=== PATIENT | male | born 1940 | race Caucasian/White ===

== ENCOUNTER → 2020-02-01 11:31 | Outpatient (CLI) | payer MEDICARE, BC, SELFPAY ==
--- NOTE | 2020-02-01 14:15 | PROSB_PTH ---
PATIENT: UMU MÁRQUEZ LOC: [facility] U#:[id number] AGE/SX: 85/M ROOM: RE02/01/[address]: Dr. Jackson Berger MD : 1940 BED: DIS: SPEC #: [id number] RECD: 02/01/20 17:31 STATUS: MELISSA LUCIE #: [id number] SANDIE: 02/01/20 14:[address]: Jackson Berger DEPT: SURGICAL PATHOLOGY RECD BY: David Conklin ENTERED: 02/02/20 11:36 SP TYPE: PROST BX OTHR DR: Dr. Guido Mckoy MD Tissues: Prostate, NOS Procedures: Surgery Specimen Level IV HEADER OPERATION: Prostate biopsy PRE-OP DIAGNOSIS: Elevated PSA TISSUE SUBMITTED: Prostate biopsy MICROSCOPIC DIAGNOSIS Prostate, core biopsy: Prostatic adenocarcinoma. Sandip grade: 4+5=9 Number of cores involved: 2/2 Proportion of tissue involved: >95% Perineural invasion: Present, frequent. Greatest tumor length: 1.1 cm ABRAM:kristie 02/03/20 MICROSCOPIC DESCRIPTION Slides are reviewed. GROSS DESCRIPTION Received in fixative is one container labeled with the patient's name and designated prostate. The specimen consists of two elongated fragments of light wyatt-white soft tissue measuring 1.4 and 1.8 cm in length and 0.1 cm in diameter. The specimen is totally submitted in one cassette. / ABRAM:kristie 02/02/20 TC:0 CPT: 63943
== END ==
PROVIDERS: PCP Family Medicine; Referring Provider Urology; Visit Provider Urology
DX: C61 Malignant neoplasm of prostate (principal)
CPT/HCPCS: 88305

== ENCOUNTER 2020-08-03 06:43 | Day surgery (SDC) | payer MEDICARE, BC, SELFPAY ==
--- NOTE | 2020-08-01 09:29 | EKG12_ITS ---
Test Reason : PREOP Blood Pressure : / mmHG Vent. Rate : 072 BPM Atrial Rate : 072 BPM P-R Int : 156 ms QRS Dur : 082 ms QT Int : 400 ms P-R-T Axes : 024 -23 037 degrees QTc Int : 438 ms Normal sinus rhythm Normal ECG Confirmed by CLAUDIA CARPENTER, LAURY ([id number]), slot editor FREDDIE MARSHALL ([id number]) on 08/02/2020 10:55:31 AM Referred By: Jackson Berger Confirmed By:LAURY TAYLOR MD
[2020-08-01 10:12] LABS: Absolute Lymphocyte Count 1.34 X10^3/uL (0.83-4.51); Absolute Neutrophil Count 3.5 X10^3/uL (2.0-7.7); Basophil# 0.04 X10^3/uL; Basophil% 0.7 % (0-1); Eosinophil# 0.11 X10^3/uL; Hematocrit 44.3 % (40-54); Hemoglobin 14.6 g/dL (13.0-16.5); Lymphocyte # 1.34 X10^3/ul (4.0); Lymphocyte % 24.2 % (19-41); Mean Corpuscular Hgb 30.8 pg (27.0-32.0); Mean Corpuscular Volume 93.5 fL (80-94); Mean Platelet Vol. 9.3 fl (6.2-12.0); Monocyte# 0.56 X10^3/uL; Monocyte% 10.1 % (0-10); NRBC Flagged by Analyzer 0 % (0-5); Neutrophil # 3.47 X10^3/uL (2.7-7.7); Neutrophil % 62.8 % (47-70); Platelet Count 265 K/mm3 (150-450); RBC Distribution Width CV 12.7 % (11.6-14.6); RBC Distribution Width SD 43.3 fl (35.1-43.9); Red Blood Count 4.74 M/mm3 (4.6-6.2); White Blood Count 5.5 K/mm3 (4.4-11.0)
[2020-08-01 10:36] LABS: Anion Gap 5 (5-15); BUN 10 mg/dL (7-18); BUN/Creat Ratio 12.2 RATIO (10-20); Calcium,Total 9.3 mg/dL (8.5-10.1); Chloride 102 mmol/L (98-107); Creatinine, Serum 0.82 mg/dL (0.70-1.30); EST Glomerular Filtration Rate 96 mL/min (>60); Est Glom Filt Rate - Afr Amer 116 mL/min (>60); Glucose 94 mg/dL (74-106); Potassium 3.7 mmol/L (3.5-5.1); Sodium Level 137 mmol/L (136-145)
[2020-08-03] VITALS (11 sets, daily range): BP systolic 126–157; BP diastolic 78–93; PULSE 60–88; RESP 16–18; TEMP 36.1–37.2; O2SAT 92–98; BMI 27.3
--- NOTE | 2020-08-03 | IMM_PTH ---
PATIENT: UMU MÁRQUEZ [place] [facility] [id number] AGE/SX: 80/M ROOM: RE08/03/[address]: Dr. Jackson Berger MD : 1940 BED: DIS: 08/04/2020 SPEC #: [id number] RECD: 08/04/20 12:37 STATUS: MELISSA REQ #: [id number] SANDIE: 08/03/20 00:[address]: Jackson Berger DEPT: IMMUNOHISTOCHEMISTRY RECD BY: Kassidy Mason ENTERED: 08/04/20 12:38 SP TYPE: IMMUNO OTHR DR: Dr. Guido Mckoy MD Tissues: Prostate, NOS Procedures: P40 (add) PSAP (add) 34BE12 (initial) S-100 (add) PHYSICIAN & INSTITUTION [place] [phone] SPECIMEN INFORMATION: Tissue Source: Prostate tissue Clinical Info: BPH with outlet obstruction Specimen Number: [id number] #2 CPT code: 26487, 53303 x3 METHODOLOGY: Deparaffinized sections of prefer/formalin-fixed tissue or PAP/DQ stained slides are incubated with monoclonal/polyclonal antibodies/oligonucleotide probes. Localization is made via biotin free immunoperoxidase method. Appropriate controls are performed and reacted as expected. Results on target cell population are indicated in the following table: RESULTS: ANTIBODY / CLONE RESULT Block 2 PSAP (PASE/4LJ) positive P40 (BC28) negative 34BE12 (34BE12) negative S-100 (4C4.9) positive These tests were developed and their performance characteristics determined by [facility]. They may not have been cleared or approved by the U.[place]. Food and Drug Administration. The FDA has determined that such clearance or approval is not necessary. The above immunohistochemical/dualISH markers are ordered and reviewed by the Pathologist. INTERPRETATION: Prostate tissue, TUR: Adenocarcinoma with focal perineural invasion. AM:kristie 08/05/2020
[2020-08-03] MEDS: Lactated Ringers 1,000 ML 100 ML IV (07:29)
[2020-08-03] MEDS: Cefazolin 2 GM in 0.9% Normal Saline 100 ML IV (08:36)
--- NOTE | 2020-08-03 08:42 | PCM.HP.STD ---
Problem List (1) BPH with obstruction/lower urinary tract symptoms Status: Acute History of Present Illness Date of Admission: 08/03/20 Chief Complaint: BPH with obstruction retention of urine The patient is a 80 year old male who has obstruction of his prostate has been using self intermittent catheterization intermittently plan to proceed with a TURP today. Past Medical History Allergies No Known Allergies Allergy (Verified 07/27/20 10:00) Home Medications: Ambulatory Orders Medication Instructions Recorded Lisinopril/Hydrochlorothiazide 2 ea PO DAILY 07/27/20 [Lisinopril-Hctz 20-12.5 mg Tab] Surgical History: no surgical history Smoking Status: Never smoker - *Family History Paternal History Items: Heart Disease Review of Systems Constitutional: Denies: Chills, Fever, Weight Change HEENT: Denies: Head Aches, Sinus Congestion, Sinus Drainage Cardiovascular: Denies: Chest Pain, Palpitations Respiratory: Denies: Cough, Shortness of breath at rest, Sputum production Gastrointestinal: Denies: Abdominal Pain, Nausea, Vomiting Genitourinary: Denies: Dysuria Musculoskeletal: Denies: Joint Pain, Joint Tenderness Skin: Denies: Rash, Wounds Neurological: Denies: Numbness, Tingling, Focal weakness Psychiatric: Denies: Anxiety, Depression, Homicidal Ideations, Suicidal Ideations Hematologic/ Lymphatic: Denies: Easy Bruising, Easy Bleeding VTE Information - Inpt Only VTE Present on Admission: No VTE Mechan Device Prophylaxis: SCD's - Physical Exam Vitals/I&O's: Vital Signs Temp Pulse Resp BP Pulse Ox 98.9 F 88 16 152/93 H 97 08/03/20 07:17 08/03/20 07:17 08/03/20 07:17 08/03/20 07:17 08/03/20 07:17 Oxygen Delivery Method Room Air Weight: 74.4 kg Body Mass Index (BMI) 27.3 Intake and Output for Last 24 Hours 08/01/20 08/02/20 08/03/20 23:59 23:59 23:59 Output Total 150 / 150 Balance -150 / -150 General: Alert, Oriented x3, Cooperative HEENT: Atraumatic, PERRLA, EOMI, Normocephalic Neck: Supple, No JVD, Negative Carotid Bruits Lungs: Clear to auscultation, Normal air movement Cardiovascular: Regular rate, No murmurs Abdomen: Bowel Sounds Present, Soft, Non Tender Extremities: No edema, Capillary Refill Less than 3 Seconds Skin: No rashes, No breakdown Musculoskeletal: No Tenderness to Palpation of Joints or Extremities Neurological: Cranial nerves II-XII grossly intact Psych/Mental Status: Normal Affect, Appropriate Microbiology Past 72 Hours 08/01/20 10:15 Interface Orders SARS-CoV-2 Antigen (Rapid) - Final Current Medications Cefazolin Sodium 2 gm/ Sodium (Chloride) 110 mls @ 150 mls/hr IV PREOP ONE Stop: 08/03/20 09:18 Lactated Ringer's () 1,000 mls @ 100 mls/hr IV .Q10H [place] Last Admin: 08/03/20 07:29 Dose: 100 mls/hr Documented by: Assessment/Plan All Active Problems BPH with obstruction/lower urinary tract symptoms (Acute) Plan to proceed with TURP.
--- NOTE | 2020-08-03 08:45 | PROS_PTH ---
PATIENT: UMU MÁRQUEZ LOC: [facility] – [place] U#:[id number] AGE/SX: 80/M ROOM: RE08/03/[address]: Dr. Jackson Berger MD : 1940 BED: DIS: 08/04/2020 SPEC #: [id number] RECD: 08/03/20 11:24 STATUS: MELISSA REIva #: [id number] SANDIE: 08/03/20 08:[address]: Jackson Berger DEPT: SURGICAL PATHOLOGY RECD BY: Winnie Huertas ENTERED: 08/03/20 12:52 SP TYPE: TURP OTHR DR: Dr. Guido Mckoy MD Tissues: Prostate, NOS Procedures: Surgery Specimen Level IV HEADER OPERATION: Cysto, TUR prostate, Olymp[employer] PRE-OP DIAGNOSIS: BPH with outlet obstruction TISSUE SUBMITTED: Prostate tissue MICROSCOPIC DIAGNOSIS Prostate, TURP: Adenocarcinoma. See cancer checklist below. AM:kristie 08/04/2020 COMMENT PROSTATE CANCER (TUR) SUMMARY: Procedure - TURP Histologic type - Adenocarcinoma Histologic grade ([place] Pattern) - 9 Percent of pattern 4 - 80% Percent of pattern 5 - 20% Intraductal carcinoma - not identified Estimated percent of tissue involved - >90% Periprostatic fat invasion - not applicable Seminal vesicle invasion - not identified Lymphvascular invasion - not identified Perineural invasion - focally present Treatment effect - unknown Additional pathologic findings - benign nodular hyperplasia. The above summary is in compliance with [employer] (CAP) Cancer Protocols Checklist and [place] Joint Committee on Cancer (AJCC), Staging Manual, 8th Ed. Immunohistochemistry ([id number]) supports the above diagnosis. Reference is made to the patient's prostate core ([id number]) in which Sandip grade 9 adenocarcinoma involving 2 out of 2 cores was identified. Case has been reviewed in consultation with Dr. Amador who concurs with the above diagnosis. IDC:[email or web address] MICROSCOPIC DESCRIPTION Slides are reviewed. GROSS DESCRIPTION Received is one container labeled with the patient's name and designated prostate chips. The specimen consists of multiple irregular fragments of pink-wyatt, rubbery, soft tissue that in aggregate weigh 6.2 gm and measure in aggregate 4 x 4 x 1.5 cm. The entire specimen is submitted in seven cassettes. / ABRAM:kristie 08/03/20 TC:0 CPT: 05071
--- NOTE | 2020-08-03 08:46 | DCINST_ITS ---
Instructions: Transurethral Resection of the Prostate (TURP): Home Recovery Allergies/Adverse Reactions: Allergies No Known Allergies Allergy (Verified 07/27/20 10:00) Medications to take at Discharge Lisinopril/Hydrochlorothiazide [Lisinopril-Hctz 20-12.5 mg Tab] 2 ea PO DAILY 07/27/20 Ciprofloxacin [Cipro] 500 mg PO BID #10 tab 08/03/20 Ibuprofen 600 mg PO Q6H PRN PRN #20 tab 08/03/20 The following prescriptions were given: Ciprofloxacin [Cipro] 500 mg PO BID #10 tab Transmission Status: Pending to [facility] Ibuprofen 600 mg PO Q6H PRN PRN #20 tab PRN Reason: Pain 1-10 Or Fever Transmission Status: Pending to [facility] Orders to be completed after discharge: 12 Lead EKG [[facility]] Time Frame: 08/01/20, Location: None Selected Primary Care Physician: Guido Mckoy MD [Primary Care Provider] - Test Results: Test results from this visit will be discussed in further detail at your follow- up appointment, if applicable. Please Follow Up With: Jackson Berger MD When: in 2 weeks, please call to make an appointment.
--- NOTE | 2020-08-03 09:29 | PCM.OPRPT ---
Problem List (1) BPH with obstruction/lower urinary tract symptoms Status: Acute Report of Operation Date of Procedure: 08/03/20 Pre-Operative Diagnosis: BPH with retention Post-Operative Diagnosis: Same Surgery/Procedure Performed:: Transurethral resection of prostate Description of Surgical Findings:: In the preoperative setting I discussed with the patient how the surgery would be done with expect afterwards. We discussed how a prostate resection is done and we discussed the risk of the surgery including, bleeding, infection, retrograde ejaculation, changes with ejaculation or intercourse,. We discussed the possibility that the resection of the prostate may not alleviate his urinary symptoms. We discussed the small risk of developing scar tissue along the urethral channel and strictures. We also discussed the chance of the prostate could grow back and he may need further surgery or treatment in the future for prostate problems. Patient was taken back to the operating room, timeout procedure was performed, he was identified and marked and placed on the operating room table. He underwent general anesthesia. He was placed in dorsolithotomy position. Penis and testicles were prepped and draped in usual sterile fashion. Went into the bladder using the visual obturator with a resectoscope. Once inside the bladder identified the right and left ureteral orifice. I then identified the prostate and the anatomy of the prostate. I marked out the area of the sphincter and the verumontanum was identified. I then proceeded with the prostate resection first resected the median lobe. And then resected the right lobe of the prostate. Then to resect the left lobe of the prostate. I then resected the apical tissue of the prostate. Made sure that there was no injury to the sphincter or the verumontanum was still intact. At the end of the resection all the chips were Ellik out of the bladder. I then identified the left and right ureteral orifice and these were confirmed to be in good position and effluxing and not injured. The resectoscope was removed, a 22 [place] catheter was placed into the bladder on continuous irrigation. And the urine was fairly light pink color and draining normally. He was taken back to the PACU in good condition. Type of Anesthesia:: General Drains: 22fr 3 way - Admit VTE Documentation VTE Present on Admission: No VTE Mechan Device Prophylaxis: SCD's
[2020-08-03] MEDS: 0.9% Normal Saline 1,000 ML 75 ML IV ×2 (10:19→18:09)
[2020-08-03] MEDS: Acetaminophen 325 MG Tablet PO (13:18)
[2020-08-03] MEDS: Ciprofloxacin 400 MG/200 ML BAG 200 MG IV ×2 (15:41→22:05)
[2020-08-03] MEDS: Lisinopril 20 MG Tablet 40 MG PO (20:18)
[2020-08-03] MEDS: hydroCHLOROthiazide 12.5mg 25 MG PO (20:18)
[2020-08-03] MEDS: Docusate Sodium 100 MG Capsule PO (20:19)
[2020-08-04] MEDS: Acetaminophen 325 MG Tablet PO (01:05)
[2020-08-04 02:31] VITALS: BP 131/68; PULSE 64; RESP 18; TEMP 37.1; O2SAT 96
[2020-08-04 07:30] VITALS: BP 158/73; PULSE 66; RESP 16; TEMP 36.9; O2SAT 96
[2020-08-04] MEDS: Docusate Sodium 100 MG Capsule PO (09:28)
[2020-08-04] MEDS: Pantoprazole Sodium 40 MG Tablet PO (09:28)
[2020-08-04] MEDS: Ciprofloxacin 500 MG Tablet PO (10:22)
--- NOTE | 2020-08-04 11:23 | PHA.DC.MC ---
Pharmacy Service has performed discharge medication reconciliation and counseling for this patient. The patient was counseled on the following discharge medications and changes in medications for homegoing were reviewed. 1. CIPRO 2. IBUPROFEN The Reason for Use, instructions for use, and potential side effects were reviewed for all new medications. The patient's questions regarding all of their medications were answered. The patient was able to verbally demonstrate an understanding of their discharge medications. Home Medications Lisinopril/Hydrochlorothiazide [Lisinopril-Hctz 20-12.5 mg Tab] 2 ea PO DAILY 07/27/20 Ciprofloxacin [Cipro] 500 mg PO BID #10 tab 08/03/20 Ibuprofen 600 mg PO Q6H PRN PRN #20 tab 08/03/20 The patient's discharge medication list was reviewed for discrepancies and discrepancies were resolved.
--- NOTE | 2020-08-04 16:08 | NURSING ---
Late entry: Student documentation reviewed.
== END 2020-08-04 11:20 | disposition home or self-care (01) ==
LOC: SDC 06:45 → AC 06:47 → MS3 12:01
PROVIDERS: Anesthesiology; PCP Family Medicine; Referring Provider Urology; Visit Provider Urology
PROC: (CPT 52601; principal; 2020-08-03 08:35)
DX: N40.1 Benign prostatic hyperplasia with lower urinary tract symptoms (principal); R33.8 Other retention of urine; N13.8 Other obstructive and reflux uropathy; Z20.828 Contact with and (suspected) exposure to other viral communicable diseases; Z79.899 Other long term (current) drug therapy; I10 Essential (primary) hypertension
CPT/HCPCS: 52601; 36415; 80048; 85025; 87426; 88305; 88341; 88342; 93005; C9803; J7030; J7120; J0744; J2405